=== PATIENT | male | born 1980 | race African-American/Black ===

== ENCOUNTER 2017-05-29 21:24 | Emergency (ER) | payer MEDICAID ==
[~2017-05-29] VITALS: Ht 175.3 cm; Wt 87.0 kg
[2017-05-29] MEDS ORDERED: DIVA500T2 PO (21:31)
[2017-05-29 22:38] LABS: DAU SCREEN DISCLAIMER
[2017-05-29 22:39] LABS: BLOOD UREA NITROGEN 10 mg/dL (7-18)
[2017-05-29 22:50] LABS: ASPARTATE AMINO TRANSFERASE 27 U/L (15-37)
[2017-05-29 22:53] LABS: ACETAMINOPHEN < 2 mcg/mL (10-30)
[2017-05-29 23:15] VITALS: BP 112/82
[2017-05-29 23:19] LABS: HEMATOCRIT 43.3 % (39.2-51.8); HEMOGLOBIN 14.3 g/dL (13.7-18.0); WHITE BLOOD COUNT 10.2 x10^3/uL (3.4-10)
== END 2017-05-30 00:16 | disposition left against medical advice (07) ==
LOC: ED 05-30 00:10
DX: F39 Unspecified mood [affective] disorder (principal)
CPT/HCPCS: 36415; 80053; 80307; 80329; 81003; 84443; 85025; 99284; G0479; G0480

== ENCOUNTER 2019-09-17 14:43 | Inpatient (IN) | payer MEDICAID ==
[~2019-09-17] VITALS: Ht 182.9 cm; Wt 90.1 kg
[~2019-09-17 14:43] MED LIST: DIVA500T2 PO
[2019-09-17] MEDS ORDERED: cogentin (14:54)
--- NOTE | 2019-09-17 14:54 | NUR ---
pt mendoza from [place] [employer] after passerby called ems because pt was vomiting. pt states he woke today with 8/10 generalized abd pain and has had one episode of diarrhea. pt attempted to eat canned oysters wtih hot sauce in hopes of decreasing abd pain, but began vomiting. pt connected to monitors. vss. to bs for assessment. awaiting orders.
[2019-09-17] MEDS ORDERED: PLEASE ENTER HEIGHT AND WEIGHT MC SCH (14:59)
[2019-09-17] MEDS ORDERED: FAMOTIDINE 20 MG/2 ML IV ONE (15:00)
[2019-09-17] MEDS ORDERED: SODIUM CHLORIDE 0.9% 1,000ML IVBOLUS ONE (15:00)
[2019-09-17] MEDS ORDERED: SODIUM CHLORIDE FLUSH 10ML SYR IVF ONE (15:00)
[2019-09-17] MEDS ORDERED: ONDANSETRON 2MG/ML, 2ML IVPush ONE (15:00)
--- NOTE | 2019-09-17 15:00 | NUR ---
Report received from Miguelina RN, pt resting in [facility]. NAD, even and unlabored respirations, call light within reach, denies additional needs, medicated per DOMINIQUE DC.
[2019-09-17] MEDS ORDERED: ONDANSETRON 2MG/ML, 2ML ONE (15:25)
[2019-09-17] MEDS ORDERED: FAMOTIDINE 20 MG/2 ML ONE (15:25)
[2019-09-17] MEDS ORDERED: HYDROmorphone 2 MG/ML, 1ML ONE ×2 (15:25→21:55)
[2019-09-17] MEDS: HYDROmorphone 1 MG/ML, 1ML INJ IVPush PRN ×2 (15:31→18:32)
[2019-09-17 15:43] LABS: BASOPHILS # (AUTO) 0.03 x10^3/uL (0-0.1); BASOPHILS % (AUTO) 0 % (0-1); EOSINOPHILS # (AUTO) 0.04 x10^3/uL (0-0.4); EOSINOPHILS % (AUTO) 0 % (1-7); LYMPHOCYTES # (AUTO) 1.99 x10^3/uL (1-3.4); LYMPHOCYTES % (AUTO) 16 % (22-44); MD NO; MEAN CORPUSCULAR HEMOGLOBIN 30.3 pg (27.5-34.5); MEAN CORPUSCULAR HGB CONC 32.8 g/dL (33.2-36.2); MEAN CORPUSCULAR VOLUME 92.5 fL (81-97); MEAN PLATELET VOLUME 8.8 fL (7.4-10.4); MONOCYTES # (AUTO) 1.34 x10^3/uL (0.2-0.8); MONOCYTES % (AUTO) 11 % (2-9); NEUTROPHILS # (AUTO) 9.25 x10^3/uL (1.8-6.8); NEUTROPHILS % (AUTO) 73 % (42-75); PLATELET COUNT 233 x10^3/uL (130-400); RED BLOOD COUNT 4.93 x10^6/uL (4.38-5.82); RED CELL DISTRIBUTION WIDTH 14.4 % (9.4-14.8)
[2019-09-17 15:44] LABS: ALBUMIN 4.9 g/dL (3.4-5.0); ANION GAP 4 mmol/L (5-15); CALCIUM 10.1 mg/dL (8.5-10.1); CHLORIDE 110 mmol/L (98-107)
[2019-09-17 15:52] LABS: ALANINE AMINOTRANSFERASE 70 U/L (12-78); ALKALINE PHOSPHATASE 95 U/L (45-117); BILIRUBIN,TOTAL 0.4 mg/dL (0.2-1.0); TOTAL PROTEIN 9.9 g/dL (6.4-8.2)
[2019-09-17] MEDS ORDERED: [UNRECOGNIZED DRUG - OTHER] (15:53)
--- NOTE | 2019-09-17 15:55 | NUR ---
pt resting in gurney, denies additional needs, lights dimmed for comfort, call light within reach, NAD, even and unlabored respirations, WCTM.
--- NOTE | 2019-09-17 16:32 | NUR ---
Pt to radiology. NAD, eyes closed, even and unlabored respirations.
[2019-09-17] MEDS ORDERED: OMNIPAQUE 350 MG/ML, 100ML BOTTLE ONE (16:33)
--- NOTE | 2019-09-17 16:40 | NUR ---
Pt back in room from radiology, UMA, resting in [facility], denies additional needs at this time. call light within reach, even and unlabored respirations, WCTM
--- NOTE | 2019-09-17 16:45 | NUR ---
urine sent to lab.
[2019-09-17 16:49] LABS: MICROSCOPIC NOT IND
[2019-09-17 16:51] LABS: CULTURE INDICATED? NO
[2019-09-17] MEDS ORDERED: METRONIDAZOLE PMX 500MG/100ML 100 ML IV ONE (17:00)
[2019-09-17] MEDS ORDERED: AMPICILLIN/SULBACTAM 3 GM in SODIUM CHLORIDE 0.9% 100 ML IV ONE (17:00)
[2019-09-17] MEDS ORDERED: METRONIDAZOLE PMX 500MG/100ML 100 ML ONE (17:19)
--- NOTE | 2019-09-17 17:45 | NUR ---
Late Entry: Pt resting in gurney. denies additional needs, NAD, even and unlabored respirations. WCTM. waiting for admit bed.
--- NOTE | 2019-09-17 18:11 | NUR ---
Pt resting in [place], UMA, denies additional needs, call light within reach, WCTM.
[2019-09-17] MEDS ORDERED: HYDROmorphone 1 MG/ML, 1ML INJ ONE ×2 (18:28→18:33)
--- NOTE | 2019-09-17 18:30 | NUR ---
Late Entry: Dr Porter at bedside discussing surgery with pt. Pt to go to OR for surgery pritesh per MD. Pt undressed, all belongings placed in pt belonging bags, WHO form started. All belongings sent with pt to OR.
[2019-09-17] MEDS ORDERED: FENTANYL PF 250 MCG/5ML ONE (19:32)
[2019-09-17] MEDS ORDERED: MIDAZOLAM 1 MG/ML, 2ML ONE (19:32)
[2019-09-17] MEDS ORDERED: FENTANYL PF 100 MCG/2ML ONE ×2 (20:42→21:55)
[2019-09-17] MEDS ORDERED: ONDANSETRON ODT 8 MG PO PRN (21:30)
[2019-09-17] MEDS ORDERED: HYDROmorphone 2 MG/ML, 1ML IVPush PRN (21:30)
[2019-09-17] MEDS ORDERED: ALBUTEROL SULFATE 2.5 MG/3 ML NPPB PRN (21:30)
[2019-09-17] MEDS ORDERED: hydrALAzine 20 MG/ML, 1ML IV PRN (21:30)
[2019-09-17] MEDS ORDERED: MIDAZOLAM 1 MG/ML, 2ML IV PRN (21:30)
[2019-09-17] MEDS ORDERED: LABETALOL 5MG/ML, 20ML IV PRN (21:30)
[2019-09-17] MEDS ORDERED: FENTANYL PF 100 MCG/2ML IV PRN (21:30)
[2019-09-17] MEDS ORDERED: ACETAMINOPHEN 325 MG TABLET PO PRN (21:30)
[2019-09-17] MEDS ORDERED: DIAZEPAM 5 MG/ML, 2ML IVPush PRN (21:30)
[2019-09-17] MEDS ORDERED: MEPERIDINE/PF 25MG/ML,1ML IVPush PRN (21:30)
[2019-09-17] MEDS ORDERED: PROMETHAZINE 25 MG/ML, 1ML IV PRN (21:30)
[2019-09-17] MEDS ORDERED: PROMETHAZINE 12.5 MG SUPP PR PRN (21:30)
[2019-09-17] MEDS ORDERED: EPHEDRINE 50 MG/ML, 1ML IVPush PRN (21:30)
[2019-09-17] MEDS ORDERED: OXYcodone 5 MG/5 ML ORAL.SOL UDC PO PRN (21:30)
[2019-09-17] MEDS ORDERED: ONDANSETRON 2MG/ML, 2ML IV PRN (21:30)
[2019-09-17] MEDS ORDERED: HALOPERIDOL 5 MG/ML IV PRN (21:30)
[2019-09-17] MEDS: FAMOTIDINE 20 MG/2 ML IVPush SCH (23:00)
[2019-09-17 23:02] VITALS: BP 121/81
[2019-09-17 23:04] VITALS: BP 121/81
[2019-09-18] MEDS ORDERED: ACETAMINOPHEN 325 MG TABLET PO PRN
[2019-09-18] MEDS ORDERED: hydrALAzine 20 MG/ML, 1ML IVPush PRN
[2019-09-18] MEDS: PIPERACILLIN/TAZO/PMX 3.375GM 50 ML IV SCH ×4 (00:53→18:14)
[2019-09-18] MEDS: D5%-0.45NACL+KCL 20MEQ 1,000 ML IV SCH ×3 (00:53→22:03)
[2019-09-18] MEDS: MORPHINE SULFATE 4 MG/ML, 1ML IVPush PRN ×4 (02:25→22:10)
[2019-09-18] MEDS: FAMOTIDINE 20 MG/2 ML IVPush SCH ×2 (02:28→15:27)
[2019-09-18 03:51] LABS: AMPHETAMINE SCREEN, URINE Negative (Negative); BARBITURATE SCREEN, URINE Negative (Negative); BENZODIAZEPINE SCREEN, URINE Negative (Negative); CANNABINOID SCREEN, URINE Positive (Negative); COCAINE SCREEN, URINE Negative (Negative); METHADONE SCREEN, URINE Negative (Negative); OPIATE SCREEN, URINE Negative (Negative)
[2019-09-18 04:34] VITALS: BP 124/76
[2019-09-18 05:19] LABS: BASOPHILS # (AUTO) 0.01 x10^3/uL (0-0.1); BASOPHILS % (AUTO) 0 % (0-1); EOSINOPHILS # (AUTO) 0.01 x10^3/uL (0-0.4); EOSINOPHILS % (AUTO) 0 % (1-7); LYMPHOCYTES # (AUTO) 0.95 x10^3/uL (1-3.4); LYMPHOCYTES % (AUTO) 9 % (22-44); MD NO; MEAN CORPUSCULAR HEMOGLOBIN 30.6 pg (27.5-34.5); MEAN CORPUSCULAR HGB CONC 32.7 g/dL (33.2-36.2); MEAN CORPUSCULAR VOLUME 93.7 fL (81-97); MEAN PLATELET VOLUME 7.8 fL (7.4-10.4); MONOCYTES # (AUTO) 0.94 x10^3/uL (0.2-0.8); MONOCYTES % (AUTO) 9 % (2-9); NEUTROPHILS # (AUTO) 9.23 x10^3/uL (1.8-6.8); NEUTROPHILS % (AUTO) 83 % (42-75); PLATELET COUNT 236 x10^3/uL (130-400); RED BLOOD COUNT 4.35 x10^6/uL (4.38-5.82); RED CELL DISTRIBUTION WIDTH 14.6 % (9.4-14.8)
[2019-09-18 05:26] LABS: ANION GAP 2 mmol/L (5-15); CALCIUM 8.2 mg/dL (8.5-10.1); CHLORIDE 110 mmol/L (98-107)
[2019-09-18 05:27] LABS: CREATININE 1.02 mg/dL (0.7-1.3)
[2019-09-18 06:29] VITALS: BP 129/87
[2019-09-18 12:52] VITALS: BP 127/85
[2019-09-18 18:34] VITALS: BP 139/88
[2019-09-18] MEDS ORDERED: SUGAMMADEX 200 MG/2 ML IVPush ONE (19:32)
[2019-09-18] MEDS ORDERED: ONDANSETRON 2MG/ML, 2ML ONE (19:32)
[2019-09-18] MEDS ORDERED: PROPOFOL 10 MG/ML, 20ML ONE (19:32)
[2019-09-18] MEDS ORDERED: DEXAMETHASONE 4 MG/ML, 1ML ONE (19:32)
[2019-09-18] MEDS ORDERED: AMPICILLIN/SULBACTAM 3 GM ONE (19:32)
[2019-09-18] MEDS ORDERED: ROCURONIUM 10 MG/ML,10ML ONE (19:32)
[2019-09-18] MEDS ORDERED: KETOROLAC 30 MG/1 ML ONE (19:32)
[2019-09-19] MEDS: PIPERACILLIN/TAZO/PMX 3.375GM 50 ML IV SCH ×2 (00:20→06:16)
[2019-09-19] MEDS: MORPHINE SULFATE 4 MG/ML, 1ML IVPush PRN ×2 (00:23→14:13)
[2019-09-19 02:00] VITALS: BP 122/85
[2019-09-19 05:57] LABS: BASOPHILS # (AUTO) 0.03 x10^3/uL (0-0.1); BASOPHILS % (AUTO) 0 % (0-1); EOSINOPHILS # (AUTO) 0.03 x10^3/uL (0-0.4); EOSINOPHILS % (AUTO) 0 % (1-7); LYMPHOCYTES # (AUTO) 1.62 x10^3/uL (1-3.4); LYMPHOCYTES % (AUTO) 19 % (22-44); MD NO; MEAN CORPUSCULAR HEMOGLOBIN 30.3 pg (27.5-34.5); MEAN CORPUSCULAR HGB CONC 32.5 g/dL (33.2-36.2); MEAN CORPUSCULAR VOLUME 93.2 fL (81-97); MEAN PLATELET VOLUME 8.2 fL (7.4-10.4); MONOCYTES # (AUTO) 1.23 x10^3/uL (0.2-0.8); MONOCYTES % (AUTO) 14 % (2-9); NEUTROPHILS # (AUTO) 5.68 x10^3/uL (1.8-6.8); NEUTROPHILS % (AUTO) 66 % (42-75); PLATELET COUNT 222 x10^3/uL (130-400); RED BLOOD COUNT 4.38 x10^6/uL (4.38-5.82); RED CELL DISTRIBUTION WIDTH 14.6 % (9.4-14.8)
[2019-09-19 06:00] LABS: ANION GAP 3 mmol/L (5-15); CALCIUM 9.1 mg/dL (8.5-10.1); CHLORIDE 106 mmol/L (98-107); CREATININE 0.95 mg/dL (0.7-1.3)
[2019-09-19] MEDS: FAMOTIDINE 20 MG/2 ML IVPush SCH ×2 (06:16→16:33)
[2019-09-19 07:35] VITALS: BP 151/96
[2019-09-19] MEDS ORDERED: D5%-0.45NACL+KCL 20MEQ 1,000 ML IV SCH (08:30)
[2019-09-19] MEDS: ENOXAPARIN 30 MG/0.3 ML SQ SCH ×2 (08:37→21:25)
[2019-09-19 14:14] VITALS: BP 141/94
[2019-09-19 20:18] VITALS: BP 136/85
[2019-09-20 02:15] VITALS: BP 130/83
[2019-09-20] MEDS: FAMOTIDINE 20 MG/2 ML IVPush SCH (05:19)
[2019-09-20 05:46] LABS: BASOPHILS # (AUTO) 0.03 x10^3/uL (0-0.1); BASOPHILS % (AUTO) 0 % (0-1); EOSINOPHILS # (AUTO) 0.05 x10^3/uL (0-0.4); EOSINOPHILS % (AUTO) 1 % (1-7); LYMPHOCYTES # (AUTO) 2.15 x10^3/uL (1-3.4); LYMPHOCYTES % (AUTO) 25 % (22-44); MD NO; MEAN CORPUSCULAR HEMOGLOBIN 30.8 pg (27.5-34.5); MEAN CORPUSCULAR HGB CONC 33.5 g/dL (33.2-36.2); MEAN CORPUSCULAR VOLUME 91.9 fL (81-97); MEAN PLATELET VOLUME 8.3 fL (7.4-10.4); MONOCYTES % (AUTO) 13 % (2-9); NEUTROPHILS # (AUTO) 5.22 x10^3/uL (1.8-6.8); NEUTROPHILS % (AUTO) 61 % (42-75); PLATELET COUNT 243 x10^3/uL (130-400); RED BLOOD COUNT 4.56 x10^6/uL (4.38-5.82)
[2019-09-20 05:57] LABS: ANION GAP 6 mmol/L (5-15); CALCIUM 9.7 mg/dL (8.5-10.1); CHLORIDE 104 mmol/L (98-107)
[2019-09-20 05:59] LABS: CREATININE 0.83 mg/dL (0.7-1.3)
[2019-09-20] MEDS: DIVALPROEX 500 MG TABLET.DR PO SCH ×2 (08:15→20:23)
[2019-09-20] MEDS: ENOXAPARIN 30 MG/0.3 ML SQ SCH ×2 (08:15→20:24)
[2019-09-20 08:24] VITALS: BP 115/80
[2019-09-20 14:00] VITALS: BP 117/76
[2019-09-20 16:15] VITALS: BP 118/80
[2019-09-20 20:18] VITALS: BP 117/84
[2019-09-20] MEDS: FAMOTIDINE 20 MG TABLET PO SCH (20:23)
[2019-09-21 02:12] VITALS: BP 117/83
[2019-09-21 08:25] VITALS: BP 111/75
[2019-09-21] MEDS: ENOXAPARIN 30 MG/0.3 ML SQ SCH ×2 (08:47→22:03)
[2019-09-21] MEDS: FAMOTIDINE 20 MG TABLET PO SCH ×2 (08:48→22:03)
[2019-09-21] MEDS: DIVALPROEX 500 MG TABLET.DR PO SCH ×2 (08:48→22:04)
[2019-09-21] MEDS ORDERED: BISACODYL 10 MG SUPP PR ONE (09:00)
[2019-09-21] MEDS: DOCUSATE 100 MG CAPSULE PO SCH ×2 (09:02→22:04)
[2019-09-21] MEDS: SODIUM CHLORIDE FLUSH 10ML SYR IVF SCH ×2 (09:03→22:04)
[2019-09-21] MEDS: OXYcodone/APAP 5/325MG TABLET PO PRN ×2 (13:22→17:11)
[2019-09-21 13:23] VITALS: BP 118/84
[2019-09-21 20:19] VITALS: BP 134/76
[2019-09-22 02:33] VITALS: BP 121/83
[2019-09-22 08:00] VITALS: BP 114/77
[2019-09-22] MEDS: SODIUM CHLORIDE FLUSH 10ML SYR IVF SCH ×2 (08:29→21:00)
[2019-09-22] MEDS: ENOXAPARIN 30 MG/0.3 ML SQ SCH ×2 (08:30→21:31)
[2019-09-22] MEDS: FAMOTIDINE 20 MG TABLET PO SCH ×2 (08:30→21:30)
[2019-09-22] MEDS: DIVALPROEX 500 MG TABLET.DR PO SCH ×2 (08:30→21:30)
[2019-09-22] MEDS: DOCUSATE 100 MG CAPSULE PO SCH ×2 (08:30→21:30)
[2019-09-22 14:00] VITALS: BP 113/77
[2019-09-22] MEDS: OXYcodone/APAP 5/325MG TABLET PO PRN (19:53)
[2019-09-22 19:58] VITALS: BP 117/81
[2019-09-23 02:25] VITALS: BP 109/75
[2019-09-23] MEDS: OXYcodone/APAP 5/325MG TABLET PO PRN (03:44)
[2019-09-23] MEDS ORDERED: morphine SULFATE 10 MG/ML, 1ML IVPush ONE (05:00)
[2019-09-23 07:30] VITALS: BP 134/84
[2019-09-23] MEDS: DOCUSATE 100 MG CAPSULE PO SCH ×2 (09:20→20:56)
[2019-09-23] MEDS: ENOXAPARIN 30 MG/0.3 ML SQ SCH ×2 (09:21→20:56)
[2019-09-23] MEDS: ONDANSETRON 2MG/ML, 2ML IVPush PRN (09:22)
[2019-09-23] MEDS: SODIUM CHLORIDE FLUSH 10ML SYR IVF SCH ×2 (09:23→21:00)
[2019-09-23] MEDS: DIVALPROEX 500 MG TABLET.DR PO SCH ×2 (09:23→20:56)
[2019-09-23] MEDS: FAMOTIDINE 20 MG/2 ML IVPush SCH ×2 (09:25→20:56)
[2019-09-23] MEDS ORDERED: LACTATED RINGERS 1,000 ML IV ONE (09:30)
[2019-09-23 09:44] LABS: MEAN CORPUSCULAR HEMOGLOBIN 30.3 pg (27.5-34.5); MEAN CORPUSCULAR HGB CONC 33.1 g/dL (33.2-36.2); MEAN CORPUSCULAR VOLUME 91.7 fL (81-97); PLATELET COUNT 369 x10^3/uL (130-400); RED BLOOD COUNT 5.29 x10^6/uL (4.38-5.82)
[2019-09-23 09:48] LABS: ANION GAP 9 mmol/L (5-15); CHLORIDE 107 mmol/L (98-107); CREATININE 1.09 mg/dL (0.7-1.3)
[2019-09-23 10:05] LABS: BASOPHILS # (AUTO) 0.04 x10^3/uL (0-0.1); BASOPHILS % (AUTO) 0 % (0-1); EOSINOPHILS # (AUTO) 0.01 x10^3/uL (0-0.4); EOSINOPHILS % (AUTO) 0 % (1-7); LYMPHOCYTES # (AUTO) 1.64 x10^3/uL (1-3.4); LYMPHOCYTES % (AUTO) 15 % (22-44); MD SCAN; MONOCYTES # (AUTO) 0.99 x10^3/uL (0.2-0.8); MONOCYTES % (AUTO) 9 % (2-9); NEUTROPHILS # (AUTO) 8.25 x10^3/uL (1.8-6.8); NEUTROPHILS % (AUTO) 76 % (42-75)
[2019-09-23] MEDS ORDERED: D5%-0.45NACL+KCL 20MEQ 1,000 ML IV SCH (11:15)
[2019-09-23 14:10] VITALS: BP 122/82
[2019-09-23 19:44] VITALS: BP 115/81
[2019-09-24 03:13] VITALS: BP 115/78
[2019-09-24 05:56] LABS: CHLORIDE 105 mmol/L (98-107)
[2019-09-24 05:58] LABS: BASOPHILS # (AUTO) 0.02 x10^3/uL (0-0.1); BASOPHILS % (AUTO) 0 % (0-1); EOSINOPHILS % (AUTO) 2 % (1-7); LYMPHOCYTES % (AUTO) 40 % (22-44); MD NO; MEAN CORPUSCULAR HEMOGLOBIN 30.5 pg (27.5-34.5); MEAN CORPUSCULAR HGB CONC 32.7 g/dL (33.2-36.2); MEAN CORPUSCULAR VOLUME 93.2 fL (81-97); MEAN PLATELET VOLUME 8.3 fL (7.4-10.4); MONOCYTES # (AUTO) 1.06 x10^3/uL (0.2-0.8); MONOCYTES % (AUTO) 16 % (2-9); NEUTROPHILS # (AUTO) 2.81 x10^3/uL (1.8-6.8); NEUTROPHILS % (AUTO) 42 % (42-75); PLATELET COUNT 359 x10^3/uL (130-400); RED CELL DISTRIBUTION WIDTH 14.3 % (9.4-14.8)
[2019-09-24 06:04] LABS: ALANINE AMINOTRANSFERASE 90 U/L (12-78); ALBUMIN 3.5 g/dL (3.4-5.0); ALKALINE PHOSPHATASE 116 U/L (45-117); ANION GAP 7 mmol/L (5-15); BILIRUBIN,TOTAL 0.7 mg/dL (0.2-1.0); CALCIUM 9.2 mg/dL (8.5-10.1); CREATININE 1.04 mg/dL (0.7-1.3); TOTAL PROTEIN 8.3 g/dL (6.4-8.2)
[2019-09-24 07:09] VITALS: BP 119/80
[2019-09-24] MEDS: ENOXAPARIN 30 MG/0.3 ML SQ SCH ×2 (08:09→20:53)
[2019-09-24] MEDS: SODIUM CHLORIDE FLUSH 10ML SYR IVF SCH ×2 (08:10→21:00)
[2019-09-24] MEDS: DIVALPROEX 500 MG TABLET.DR PO SCH ×2 (08:10→20:54)
[2019-09-24] MEDS: DOCUSATE 100 MG CAPSULE PO SCH ×2 (08:10→20:54)
[2019-09-24] MEDS: FAMOTIDINE 20 MG/2 ML IVPush SCH ×2 (08:10→20:52)
[2019-09-24] MEDS ORDERED: D5%-0.45NACL+KCL 20MEQ 1,000 ML IV SCH (11:15)
[2019-09-24 13:38] VITALS: BP 132/85
[2019-09-24] MEDS: D5%-0.45NACL+KCL 20MEQ 1,000 ML IV SCH (13:38)
[2019-09-24 18:58] VITALS: BP 124/89
[2019-09-24] MEDS: OXYcodone/APAP 5/325MG TABLET PO PRN (21:06)
[2019-09-24] MEDS: ONDANSETRON 2MG/ML, 2ML IVPush PRN (21:06)
[2019-09-24] MEDS ORDERED: PROMETHAZINE 25 MG/ML, 1ML IM PRN (23:00)
[2019-09-24] MEDS ORDERED: MORPHINE SULFATE 4 MG/ML, 1ML IVPush PRN (23:00)
[2019-09-25] MEDS: D5%-0.45NACL+KCL 20MEQ 1,000 ML IV SCH ×2 (03:20→16:08)
[2019-09-25 07:21] VITALS: BP 121/82
[2019-09-25] MEDS: FAMOTIDINE 20 MG/2 ML IVPush SCH (08:25)
[2019-09-25] MEDS: DOCUSATE 100 MG CAPSULE PO SCH ×2 (08:25→21:00)
[2019-09-25] MEDS: DIVALPROEX 500 MG TABLET.DR PO SCH ×2 (08:26→21:00)
[2019-09-25] MEDS: SODIUM CHLORIDE FLUSH 10ML SYR IVF SCH ×2 (08:27→21:00)
[2019-09-25] MEDS: ENOXAPARIN 30 MG/0.3 ML SQ SCH ×2 (08:27→20:30)
[2019-09-25] MEDS ORDERED: METOCLOPRAMIDE 10MG TABLET PO PRN (10:00)
[2019-09-25 13:51] VITALS: BP 111/74
[2019-09-25] MEDS: ONDANSETRON 2MG/ML, 2ML IVPush PRN (19:02)
[2019-09-25] MEDS ORDERED: morphine SULFATE 10 MG/ML, 1ML IVPush ONE (19:30)
[2019-09-25] MEDS ORDERED: PROMETHAZINE 25 MG/ML, 1ML IM ONE (19:30)
[2019-09-25 19:36] VITALS: BP 118/80
[2019-09-25] MEDS: FAMOTIDINE 20 MG TABLET PO SCH (21:00)
[2019-09-26 02:57] VITALS: BP 116/79
[2019-09-26] MEDS: D5%-0.45NACL+KCL 20MEQ 1,000 ML IV SCH ×3 (03:39→21:30)
[2019-09-26] MEDS: FAMOTIDINE 20 MG TABLET PO SCH ×2 (09:00→19:23)
[2019-09-26] MEDS: SODIUM CHLORIDE FLUSH 10ML SYR IVF SCH ×2 (09:00→21:00)
[2019-09-26] MEDS: ENOXAPARIN 30 MG/0.3 ML SQ SCH ×2 (09:00→20:30)
[2019-09-26] MEDS: DOCUSATE 100 MG CAPSULE PO SCH ×2 (09:00→19:28)
[2019-09-26] MEDS: DIVALPROEX 500 MG TABLET.DR PO SCH ×2 (09:00→19:23)
[2019-09-26] MEDS ORDERED: LORazepam 0.5MG TABLET ONE (09:09)
[2019-09-26] MEDS ORDERED: LORazepam 1MG TABLET PO PRN (09:30)
[2019-09-26 13:03] VITALS: BP 138/89
[2019-09-26] MEDS: LORazepam 0.5MG TABLET PO PRN (17:02)
[2019-09-26 18:26] VITALS: BP 139/98
[2019-09-26] MEDS: OXYcodone/APAP 5/325MG TABLET PO PRN (19:23)
[2019-09-27 01:34] VITALS: BP 122/70
[2019-09-27] MEDS: LORazepam 0.5MG TABLET PO PRN (06:12)
[2019-09-27] MEDS: OXYcodone/APAP 5/325MG TABLET PO PRN (06:13)
[2019-09-27] MEDS: D5%-0.45NACL+KCL 20MEQ 1,000 ML IV SCH ×2 (06:14→15:46)
[2019-09-27 06:35] VITALS: BP 121/83
[2019-09-27 07:51] LABS: BASOPHILS # (AUTO) 0.01 x10^3/uL (0-0.1); BASOPHILS % (AUTO) 0 % (0-1); EOSINOPHILS # (AUTO) 0.08 x10^3/uL (0-0.4); EOSINOPHILS % (AUTO) 1 % (1-7); LYMPHOCYTES # (AUTO) 2.79 x10^3/uL (1-3.4); LYMPHOCYTES % (AUTO) 40 % (22-44); MD NO; MEAN CORPUSCULAR HEMOGLOBIN 30.7 pg (27.5-34.5); MEAN CORPUSCULAR HGB CONC 32.9 g/dL (33.2-36.2); MEAN CORPUSCULAR VOLUME 93.1 fL (81-97); MEAN PLATELET VOLUME 8.2 fL (7.4-10.4); MONOCYTES # (AUTO) 1.04 x10^3/uL (0.2-0.8); MONOCYTES % (AUTO) 15 % (2-9); NEUTROPHILS # (AUTO) 3.14 x10^3/uL (1.8-6.8); NEUTROPHILS % (AUTO) 45 % (42-75); PLATELET COUNT 428 x10^3/uL (130-400); RED BLOOD COUNT 4.54 x10^6/uL (4.38-5.82); RED CELL DISTRIBUTION WIDTH 14.7 % (9.4-14.8)
[2019-09-27] MEDS: DOCUSATE 100 MG CAPSULE PO SCH (07:56)
[2019-09-27] MEDS: FAMOTIDINE 20 MG TABLET PO SCH (07:56)
[2019-09-27] MEDS: DIVALPROEX 500 MG TABLET.DR PO SCH (07:56)
[2019-09-27] MEDS: SODIUM CHLORIDE FLUSH 10ML SYR IVF SCH (07:57)
[2019-09-27] MEDS: ENOXAPARIN 30 MG/0.3 ML SQ SCH (07:57)
[2019-09-27 08:00] LABS: CREATININE 0.92 mg/dL (0.7-1.3)
[2019-09-27 14:27] VITALS: BP 132/76
== END 2019-09-27 17:01 | disposition left against medical advice (07) | DRG 341 ==
LOC: ED 15:42 → EDIP 17:10 → 4NE 22:42
PROVIDERS: ADMIT Family Medicine; ATTEND Internal Medicine
PROC: 0DTJ0ZZ Resection of Appendix, Open Approach (ICD-10-PCS; 2019-09-17)
PROC: 3E1M38Z Irrigation of Peritoneal Cavity using Irrigating Substance, Percutaneous Approach (ICD-10-PCS; principal; 2019-09-17 19:00)
DX: K56.601 Complete intestinal obstruction, unspecified as to cause (principal); K65.0 Generalized (acute) peritonitis; F20.0 Paranoid schizophrenia; F31.9 Bipolar disorder, unspecified; G40.909 Epilepsy, unspecified, not intractable, without status epilepticus; F12.10 Cannabis abuse, uncomplicated; E86.0 Dehydration; Z59.0 Homelessness
CPT/HCPCS: 36415; 74018; 74021; 74250; 96361; 96365; 96375; 99291; J3490; 74177; 80048; 80053; 80164; 80307; 81003; 82565; 83605; 83690; 83735; 85025; 87070; 87075; 87205; 88304; 93005; G0378; J0295; J1100; J1170; J1650; J1885; J2250; J2405; J2543; J2550; J2704; J3010; Q9967; J2270; J3480; J7030; J7120

== ENCOUNTER 2020-09-21 05:00 | Emergency (ER) | payer SELFPAY ==
[~2020-09-21] VITALS: Ht 175.3 cm; Wt 88.6 kg
[~2020-09-21 05:00] MED LIST changes: +[UNRECOGNIZED DRUG - OTHER]; +cogentin
[2020-09-21 05:30] LABS: BASOPHILS % (AUTO) 0 % (0-1); EOSINOPHILS % (AUTO) 0 % (1-7); LYMPHOCYTES % (AUTO) 30 % (22-44); MEAN CORPUSCULAR HEMOGLOBIN 31.5 pg (27.5-34.5); MEAN CORPUSCULAR HGB CONC 33.8 g/dL (33.2-36.2); MEAN PLATELET VOLUME 7.9 fL (7.4-10.4); MONOCYTES % (AUTO) 8 % (2-9); NEUTROPHILS % (AUTO) 61 % (42-75); PLATELET COUNT 222 x10^3/uL (130-400); RED BLOOD COUNT 4.43 x10^6/uL (4.38-5.82)
[2020-09-21 05:37] LABS: ALBUMIN 3.8 g/dL (3.4-5.0); ANION GAP 6 mmol/L (5-15); CALCIUM 9.1 mg/dL (8.5-10.1); CHLORIDE 113 mmol/L (98-107); CREATININE 0.98 mg/dL (0.7-1.3)
[2020-09-21 05:41] LABS: SALICYLATE LEVEL < 1.7 mg/dL (2.8-20.0)
[2020-09-21 05:46] LABS: MD NO
[2020-09-21 05:59] LABS: AMPHETAMINE SCREEN, URINE Negative (Negative); BARBITURATE SCREEN, URINE Negative (Negative); BENZODIAZEPINE SCREEN, URINE Negative (Negative); CANNABINOID SCREEN, URINE Positive (Negative); COCAINE SCREEN, URINE Negative (Negative); METHADONE SCREEN, URINE Negative (Negative); OPIATE SCREEN, URINE Negative (Negative)
--- NOTE | 2020-09-21 06:28 | NUR ---
PT STATES THAT HAS HAD SI AND HI THE LAST DAY BUT DOESN'T HAVE A WAY OF CARRING IT OUT. STATES HAS BEEN DIAGNOSED SCHIZOPHRENIC SINCE HE WAS [age] YEARS OLD. ALSO STATES HE IS BIPOLAR. STATES HAS NOT BEEN TAKING HIS MEDICATIONS FOR THE LAST FEW MONTHS, DEPAKOTE, COGENTIN, PROZAC, HALDOL.
--- NOTE | 2020-09-21 06:32 | NUR ---
PT RESING IN BED BREATHING IS BILATERAL UNALABORED. SITTER WATCHING PT.
--- NOTE | 2020-09-21 06:38 | NUR ---
all pt belongings placed in 2 bags and into psych locker for room 2
[2020-09-21] MEDS ORDERED: PROZAC (06:52)
[2020-09-21] MEDS ORDERED: HALDOL (06:52)
--- NOTE | 2020-09-21 07:08 | NUR ---
report received from janelle carr.
--- NOTE | 2020-09-21 08:32 | NUR ---
diet tray provided at this time.
--- NOTE | 2020-09-21 09:26 | NUR ---
pt sleeping in [facility]. resps even and unlabored. sitter monitoring from [facility] for safety.
--- NOTE | 2020-09-21 09:27 | NUR ---
hospital bed ordered at this time.
--- NOTE | 2020-09-21 10:14 | NUR ---
MOTHER SUPERIOR: PT PLACED ON HOSPITAL BED, ROOM REMAINS SECURE AND SITTER AT DOOR
--- NOTE | 2020-09-21 10:36 | NUR ---
REPORT FROM KRISTIAN BETANCOURT, ASSUME CARE OF PT AT THIS TIME.
--- NOTE | 2020-09-21 11:10 | NUR ---
PT SLEEPING, SITTER AT DOORWAY. ED MEAL TRAY ORDERED.
--- NOTE | 2020-09-21 12:18 | NUR ---
PT STILL SLEEPING, NAD. MEAL TRAY WITH SITTER. AWAITING VIDEO RECORDER MECHANIC TO SEE.
--- NOTE | 2020-09-21 12:44 | NUR ---
PT FINISHED ALL OF FIRST LUNCH TRAY AND REQUESTING 2ND WHICH IS ORDERED. PT CALM, COOPERATIVE WITH CARE. SITTER AT DOORWAY
--- NOTE | 2020-09-21 13:04 | NUR ---
2ND MEAL TRAY PROVIDED. SITTER AT DOORWAY.
[2020-09-21] MEDS ORDERED: BENZTROPINE 1 MG TABLET PO ONE (14:00)
[2020-09-21] MEDS ORDERED: DIVALPROEX 500 MG TABLET.DR PO SCH (14:00)
[2020-09-21] MEDS ORDERED: FLUOXETINE 10 MG CAP PO ONE (14:00)
--- NOTE | 2020-09-21 14:08 | NUR ---
CALL TO [facility] TO INQUIRE ON PT'S MEDICATIONS. PER ARIEL BETANCOURT, PT GIVEN HALDOL 350 MG IM ON 09/15 WITH SHEDULE Q 4 WKS. NO SCRIPTS PROVIDED ON RELEASE. THIS REPORTED TO LONI MAYS.
[2020-09-21] MEDS ORDERED: DIVALPROEX 500 MG TABLET.DR ONE (14:16)
[2020-09-21] MEDS ORDERED: BENZTROPINE 1 MG TABLET ONE (14:16)
[2020-09-21] MEDS ORDERED: FLUOXETINE 10 MG CAP ONE (14:16)
--- NOTE | 2020-09-21 14:21 | NUR ---
PT MEDICATED PER EMAR.
[2020-09-21 15:10] VITALS: BP 124/61
--- NOTE | 2020-09-21 15:11 | NUR ---
SW PROVIDED RESOURCES TO PT PRIOR TO DC. PT GIVEN SNACKS PER REQUEST.
== END 2020-09-21 15:13 | disposition home or self-care (01) ==
LOC: ED 07:46
DX: F39 Unspecified mood [affective] disorder (principal); R45.851 Suicidal ideations; R45.850 Homicidal ideations; R44.0 Auditory hallucinations
CPT/HCPCS: 36415; 80048; 80299; 80307; 80320; 80329; 82040; 85025; 99284; G0480